=== PATIENT | female | born 1985 ===

== ENCOUNTER 2018-07-24 11:15 | Emergency (ER) | payer MEDICAID ==
[2018-07-24 12:11] LABS: URINE BILIRUBIN NEGATIVE (NEGATIVE); URINE BLOOD SMALL (NEGATIVE); URINE GLUCOSE (UA) NEGATIVE (NEGATIVE); URINE LEUKOCYTE ESTERASE TRACE Leu/uL (NEGATIVE); URINE PROTEIN NEGATIVE mg/dL (<30 mg/dL); URINE UROBILINOGEN 0.2 E.U./dL (<1 E.U./dL)
[2018-07-24 12:17] LABS: URINE APPEARANCE CLEAR (CLEAR); URINE COLOR YELLOW (YELLOW)
[2018-07-24 12:21] LABS: URINE BACTERIA MANY (NEG)
[2018-07-24] MEDS ORDERED: cefTRIAXone (Rocephin) 250 mg Inj IM STA (12:21)
--- NOTE | 2018-07-24 12:34 | ED PDOC ---
Arrival/HPI - General Historian: Patient - History of Present Illness Narrative History of Present Illness (Text): 07/24/18 14:37 32-year-old female presents today with vaginal irritation and vaginal discharge. Patient states her partner was diagnosed with Trichomonas recently. Patient states shortly after his diagnosis she started to notice a yellowish vaginal discharge. She denies chest pain or shortness of breath. No abdominal pain. She denies dysuria or urinary frequency. No other complaints <Phyllis Bell - Last Filed: 07/24/18 18:25> <Geoffrey Yuen - Last Filed: 07/26/18 17:50> - General Chief Complaint: Female Genitourinary Time Seen by Provider: 07/24/18 11:30 Past Medical History - Provider Review Nursing Documentation Reviewed: Yes - Travel History Have you recently traveled outside [place] w/in the past 3 mons?: No - Tetanus Immunization Tetanus Immunization: Unknown - Cardiac Hx Cardiac Disorders: No - Pulmonary Hx Respiratory Disorders: No - Neurological Hx Neurological Disorder: No - HEENT Hx HEENT Disorder: Yes Other/Comment: PHARYGITIS - Renal Hx Renal Disorder: No - Endocrine/Metabolic Hx Endocrine Disorders: No - Hematological/Oncological Hx Blood Disorders: No - Integumentary Hx Dermatological Disorder: Yes Other/Comment: ABSCESS - Musculoskeletal/Rheumatological Hx Musculoskeletal Disorders: No - Gastrointestinal Hx Gastrointestinal Disorders: No - Genitourinary/Gynecological Hx Genitourinary Disorders: No - Psychiatric Hx Psychophysiologic Disorder: No Hx Substance Use: Yes (CANNABIS) <Phyllis Bell - Last Filed: 07/24/18 18:25> Family/Social History - Physician Review Nursing Documentation Reviewed: Yes Family/Social History: Unknown Family HX Smoking Status: Never Smoked Hx Alcohol Use: No Hx Substance Use: Yes (CANNABIS) <Phyllis Bell - Last Filed: 07/24/18 18:25> Allergies/Home Meds <Phyllis Bell - Last Filed: 07/24/18 18:25> <Geoffrey Yuen - Last Filed: 07/26/18 17:50> Allergies/Adverse Reactions: Allergies No Known Allergies Allergy (Verified 07/24/18 11:18) Review of Systems - Review of Systems Constitutional: absent: Fatigue, Fevers Respiratory: absent: SOB, Cough Cardiovascular: absent: Chest Pain, Palpitations Gastrointestinal: absent: Abdominal Pain, Constipation, Diarrhea, Nausea, Vomiting Genitourinary Female: Vaginal Discharge. absent: Dysuria, Frequency, Hematuria Musculoskeletal: absent: Arthralgias, Back Pain Skin: absent: Rash, Pruritis Psychiatric: absent: Anxiety, Depression <Phyllis Bell T - Last Filed: 07/24/18 18:25> Physical Exam Vital Signs Reviewed: Yes Vital Signs Temp Pulse Resp BP Pulse Ox 07/24/18 11:19 98.5 F 76 16 120/78 99 Temperature: Afebrile Blood Pressure: Normal Pulse: Regular Respiratory Rate: Normal Appearance: Positive for: Well-Appearing, Non-Toxic, Comfortable Pain Distress: None Mental Status: Positive for: Alert and Oriented X 3 - Systems Exam Head: Present: Atraumatic Mouth: Present: Moist Mucous Membranes Respiratory/Chest: Present: Clear to Auscultation Cardiovascular: Present: Regular Rate and Rhythm Abdomen: No: Tenderness, Rebound, Guarding Genitourinary/Pelvic Exam: Present: Normal External Genitalia, Vaginal Discharge (white vaginal discharge), Cervical os Closed, Other (chaparoned by Amaris ruelas Scribdusty). No: Vaginal Bleeding, Vaginal Lesions, Adenexal Tenderness, Adenexal Mass, Cervical Motion Tendernes, Odor Back: Present: Normal Inspection Upper Extremity: Present: Normal ROM Lower Extremity: Present: Normal ROM Neurological: Present: GCS=15, Speech Normal Skin: Present: Warm, Dry, Normal Color Psychiatric: Present: Alert, Oriented x 3 <Phyllis Bell T - Last Filed: 07/24/18 18:25> Vital Signs Temp Pulse Resp BP Pulse Ox 07/24/18 13:36 97.7 F 80 18 129/77 99 07/24/18 13:09 97.7 F 80 18 129/77 99 07/24/18 12:50 80 18 118/69 99 07/24/18 11:19 98.5 F 76 16 120/78 99 <Geoffrey Yuen - Last Filed: 07/26/18 17:50> Medical Decision Making ED Course and Treatment: 07/24/18 14:48 Patient is nontoxic well-appearing in no distress with stable vital signs Ceftriaxone 250 mg IM Zithromax 1 g p.o. given pt partner with + Trichomonas will treat with 2 g of Flagyl po Gonorrhea and Chlamydia cultures are pending. Advised patient to refrain from sex for 10 days followup with the primary care physician within the next 2 days or return if symptoms worsen persist or if new symptoms develop. Patient verbalizes understanding of discharge instructions and need for immediate followup. Impression: vaginal discharge, STD exposure Keflex; twice daily x 7 days. Follow up primary care physician within the next 2 days Return if symptoms worsen persist or if new symptoms develop. - Lab Interpretations Lab Results: Lab Results 07/24/18 11:48: Urine Color Yellow, Urine Appearance Clear, Urine pH 6.0, Ur Specific [place] >= 1.030, Urine Protein Negative, Urine Glucose (UA) Negative, Urine Ketones Negative, Urine Blood Small H, Urine Nitrate Negative, Urine Bilirubin Negative, Urine Urobilinogen 0.2, Ur Leukocyte Esterase Trace H, Urine RBC 5 - 10, Urine WBC 2 - 5, Ur Epithelial Cells 4 - 5, Urine Bacteria Many - Medication Orders Current Medication Orders: Discontinued Medications Azithromycin (Zithromax) 1,000 mg PO STAT STA; Protocol Stop: 07/24/18 12:22 Ceftriaxone Sodium (Rocephin) 250 mg IM STAT STA; Protocol Stop: 07/24/18 12:22 <Phyllis Bell T - Last Filed: 07/24/18 18:25> ED Course and Treatment: 07/26/18 17:50 The documented history was done by the physician balancer scale. The documented physical exam was done by the physician balancer scale. The documented procedures were done by the physician balancer scale, I was available for consultation during the PA/FIELD SUPPORT REPRESENTATIVE evaluation. The chart was reviewed by me, and I agree with the management and plan. - Lab Interpretations Microbiology Results: Microbiology Results 07/24/18 11:36 Urine,Clean Catch Urine Culture - Preliminary Gram Positive Cocci Lab Results: Lab Results 07/24/18 11:48: Urine Color Yellow, Urine Appearance Clear, Urine pH 6.0, Ur Specific [place] >= 1.030, Urine Protein Negative, Urine Glucose (UA) Negative, Urine Ketones Negative, Urine Blood Small H, Urine Nitrate Negative, Urine Bilirubin Negative, Urine Urobilinogen 0.2, Ur Leukocyte Esterase Trace H, Urine RBC 5 - 10, Urine WBC 2 - 5, Ur Epithelial Cells 4 - 5, Urine Bacteria Many - Medication Orders Current Medication Orders: Discontinued Medications Azithromycin (Zithromax) 1,000 mg PO STAT STA; Protocol Stop: 07/24/18 12:22 Last Admin: 07/24/18 12:50 Dose: 1,000 mg Ceftriaxone Sodium (Rocephin) 250 mg IM STAT STA; Protocol Stop: 07/24/18 12:22 Last Admin: 07/24/18 12:50 Dose: 250 mg IM Administration Charges Document 07/24/18 12:50 EQ (Rec: 07/24/18 12:50 EQ [id number]) Injection Site MAR Injection Site Left Deltoid Charges for Administration # of IM Administrations 1 Metronidazole (Flagyl) 2,000 mg PO STAT STA; Protocol Stop: 07/24/18 12:32 Last Admin: 07/24/18 12:50 Dose: 2,000 mg <Geoffrey Yuen - Last Filed: 07/26/18 17:50> Disposition/Present on Arrival - Present on Arrival Any Indicators Present on Arrival: No History of DVT/PE: No History of Uncontrolled Diabetes: No Urinary Catheter: No History of Decub. Ulcer: No History Surgical Site Infection Following: None - Disposition Have Diagnosis and Disposition been Completed?: Yes Disposition Time: 12:32 Patient Plan: Discharge <Phyllis Bell - Last Filed: 07/24/18 18:25> <Geoffrey Yuen - Last Filed: 07/26/18 17:50> - Disposition Diagnosis: Vaginal discharge, STD exposure Disposition: HOME/ ROUTINE Condition: GOOD Discharge Instructions (ExitCare): Vaginal Discharge in Adults, Sexually-Transmitted Diseases (DC) Additional Instructions: keflex; 1 capsule twice daily x 7 days increase fluids follow up with the PMD within the next 2 days. follow up with the DRYWALL STRIPPER within the next 2 days. return if symptoms worsen,persist or if new symptoms develop. Prescriptions: Cephalexin [Keflex] 500 mg PO BID #14 capsule Referrals: Mekhi Sanchez MD [Staff Provider] - Follow up with primary [facility] [Outside] - [facility] with [facility] [Outside] - Follow up with primary Dianna Cabrera MD [Medical Doctor] - Follow up with primary Forms: [employer] (Rom[employer]), WORK NOTE
[2018-07-24 12:51] VITALS: RESP 18
[2018-07-24 13:03] VITALS: PULSE 80; O2SAT 99
[2018-07-24 13:10] VITALS: BP 129/77; TEMP 97.7
== END 2018-07-24 13:36 | disposition home or self-care (01) ==
LOC: ED 11:15
DX: N89.8 Other specified noninflammatory disorders of vagina (principal); Z20.2 Contact with and (suspected) exposure to infections with a predominantly sexual mode of transmission
CPT/HCPCS: 81001; 87086; 87491; 87591; 96372; 99283; J0696

== ENCOUNTER 2018-10-07 10:56 | Emergency (ER) | payer MEDICAID ==
[2018-10-07 11:27] VITALS: BP 114/79; PULSE 76
--- NOTE | 2018-10-07 13:03 | ED PDOC ---
Arrival/HPI - General Chief Complaint: Allergic Reaction Time Seen by Provider: 10/07/18 11:55 Historian: Patient - History of Present Illness Narrative History of Present Illness (Text): 10/07/18 14:09 33yr old female presents today with irritation to the lips bilaterally 3 days. Patient states 3 days ago she ate a chicken [employer] sandwich and instantaneously felt a tingling in blistering sensation to the upper and lower lips. Patient states she's been taking Lanette over the past 3 days and has noticed a decrease in the swelling of the lips states she still has small blisters on the lips. Patient states this happened to her previously after applying Blistex to her lips. Patient denies swelling of the tongue. Denies difficulty breathing or swallowing. Denies chest pain or shortness of breath. Denies fevers or chills. Time/Duration: Other (3 days) Symptom Onset: Sudden Symptom Course: Improving Quality: Burning Severity Level: Mild Past Medical History - Provider Review Nursing Documentation Reviewed: Yes - Travel History Have you recently traveled outside [place] w/in the past 3 mons?: No - Tetanus Immunization Tetanus Immunization: Unknown - Cardiac Hx Cardiac Disorders: No - Pulmonary Hx Respiratory Disorders: No - Neurological Hx Neurological Disorder: No - HEENT Hx HEENT Disorder: Yes Other/Comment: PHARYGITIS - Renal Hx Renal Disorder: No - Endocrine/Metabolic Hx Endocrine Disorders: No - Hematological/Oncological Hx Blood Disorders: No - Integumentary Hx Dermatological Disorder: Yes Other/Comment: ABSCESS - Musculoskeletal/Rheumatological Hx Musculoskeletal Disorders: No - Gastrointestinal Hx Gastrointestinal Disorders: No - Genitourinary/Gynecological Hx Genitourinary Disorders: No - Psychiatric Hx Psychophysiologic Disorder: No Hx Substance Use: Yes (CANNABIS) Family/Social History - Physician Review Nursing Documentation Reviewed: Yes Family/Social History: Unknown Family HX Smoking Status: Never Smoked Hx Alcohol Use: No Hx Substance Use: Yes (CANNABIS) Allergies/Home Meds Allergies/Adverse Reactions: Allergies No Known Allergies Allergy (Verified 10/07/18 11:23) Home Medications: Home Meds Medication Instructions Recorded Confirmed Fexofenadine/Pseudoephedrine 1 tab PO PRN PRN 10/07/18 10/07/18 [Lanette-D 24 Hour Tablet] Review of Systems - Review of Systems Constitutional: absent: Fatigue, Fevers Eyes: absent: Vision Changes, Photophobia ENT: Other (swelling to lips). absent: Sore Throat, Rhinorrhea, Epistaxis, Sinus Congestion Respiratory: absent: SOB, Cough Cardiovascular: absent: Chest Pain, Palpitations Gastrointestinal: absent: Abdominal Pain, Nausea, Vomiting Genitourinary Female: absent: Dysuria Musculoskeletal: absent: Arthralgias Skin: Rash, Pruritis Neurological: absent: Headache, Dizziness Psychiatric: absent: Anxiety, Depression Physical Exam Vital Signs Reviewed: Yes Vital Signs Temp Pulse Resp BP Pulse Ox 10/07/18 11:24 97.3 F L 76 16 114/79 98 Temperature: Afebrile Blood Pressure: Normal Pulse: Regular Respiratory Rate: Normal Appearance: Positive for: Well-Appearing, Non-Toxic, Comfortable Pain Distress: None Mental Status: Positive for: Alert and Oriented X 3 - Systems Exam Head: Present: Atraumatic. No: Tenderness, Swelling, Ecchymosis, Laceration Pupils: Present: PERRL Extroacular Muscles: Present: EOMI Conjunctiva: Present: Normal Ears: Present: Normal, NORMAL TM Mouth: Present: Moist Mucous Membranes, Normal Tounge, Normal Teeth. No: Drooling, Trismus, Normal Lips (there are multiple pinpoint vesicles noted to the upper and lower lips along the mucosa. minimal tenderness. no edema, no erythema; ) Pharnyx: Present: Normal. No: ERYTHEMA, EXUDATE, TONSILS ENLARGED, Peritonsilar Swelling, Uvular Deviation, Muffled/Hoarse Voice, Strider, Soft Palate/Uvular Edema Nose (External): Present: Atraumatic Nose (Internal): Present: Normal Inspection Neck: Present: Normal Range of Motion, Trachea Midline. No: Lymphadenopathy Respiratory/Chest: Present: Clear to Auscultation, Good Air Exchange. No: Respiratory Distress, Accessory Muscle Use Cardiovascular: Present: Regular Rate and Rhythm, Normal S1, S2. No: Murmurs Neurological: Present: GCS=15, Speech Normal Skin: Present: Warm, Dry, Normal Color Psychiatric: Present: Alert, Oriented x 3 Medical Decision Making ED Course and Treatment: 10/07/18 13:02 Patient is nontoxic well-appearing in no distress with stable vital signs no angioedema. pt with small pinpoint vesicles on mucosa of upper and lower lips without swelling. Lungs are clear to auscultation bilaterally there is no wheezing noted. The airway is patent pepcid and prednisone given po pt is driving home will d/c with rx for benadryl. will give short course of low dose prednisone. I advised taking Benadryl every 6 hours as needed for itch [as well as prednisone daily x4 days]. Advised patient to follow up with primary care physician within the next 2 days and return if symptoms worsen persist or if new symptoms develop Patient wasn't advised of the risks and benefits of using prednisone and solids. She was advised of the risk of elevated blood sugar glaucoma and avascular necrosis. Patient verbalizes understanding of discharge instructions and need for immediate followup. all aspects of this case were discussed the attending of record. Impression :allergic reaction Benadryl every 6 hours as needed for itch Prednisone once daily x4 days Pepcid one tablet daily Follow up with the primary care physician within the next 2 days follow up with the principal cloud architect within the next 2 days. Return if symptoms worsen persist or if new symptoms develop: Shortness of breath, feeling of throat closing, difficulty speaking or any other concerning symptoms develop Disposition/Present on Arrival - Present on Arrival Any Indicators Present on Arrival: No History of DVT/PE: No History of Uncontrolled Diabetes: No Urinary Catheter: No History of Decub. Ulcer: No History Surgical Site Infection Following: None - Disposition Have Diagnosis and Disposition been Completed?: Yes Diagnosis: Allergic reaction Disposition: HOME/ ROUTINE Disposition Time: 12:30 Patient Plan: Discharge Condition: GOOD Discharge Instructions (ExitCare): Skin Rash (DC) Additional Instructions: Benadryl every 6 hours as needed for itch Prednisone once daily x4 days Pepcid one tablet daily Follow up with the primary care physician within the next 2 days follow up with the principal cloud architect within the next 2 days. Return if symptoms worsen persist or if new symptoms develop: Shortness of breath, feeling of throat closing, difficulty speaking or any other concerning symptoms develop Prescriptions: DiphenhydrAMINE [Benadryl] 25 mg PO Q6H #20 cap Famotidine [Pepcid] 20 mg PO DAILY #30 tab predniSONE [predniSONE Tab] 1 tab PO DAILY #4 tab Referrals: Derrek Beard MD [Staff Provider] - Follow up with primary Dianna Cabrera MD [Medical Doctor] - Follow up with primary [facility] [Outside] - Follow up with primary Forms: [employer] (French), WORK NOTE
[2018-10-07 13:38] VITALS: RESP 18; TEMP 98; O2SAT 97
== END 2018-10-07 13:37 | disposition home or self-care (01) ==
LOC: ED 10:56
DX: T78.49XA Other allergy, initial encounter (principal); X58.XXXA Exposure to other specified factors, initial encounter